=== PATIENT | female | born 1965 | race Native Hawaiian/Other Pacific Islander ===

== ENCOUNTER 2017-03-30 12:08 | Emergency (ER) | payer OTHER ==
[~2017-03-30] VITALS: Ht 157.5 cm; Wt 68.0 kg
[2017-03-31] MEDS ORDERED: FURO40TA93 PO (04:38)
[2017-03-31] MEDS ORDERED: KLOR-CON M2020 MEQ PO (04:39)
[2017-03-31] MEDS ORDERED: ALBU90AE13 INH (04:39)
== END 2017-03-30 12:37 | disposition home health service (06) ==
LOC: ED 12:08
DX: Z01.30 Encounter for examination of blood pressure without abnormal findings (principal)
CPT/HCPCS: 99281

== ENCOUNTER 2017-03-31 04:28 | Emergency (ER) | payer OTHER ==
[~2017-03-31] VITALS: Ht 170.2 cm; Wt 57.2 kg
[2017-03-31] MEDS ORDERED: FURO40TA93 PO (04:38)
[2017-03-31] MEDS ORDERED: ALBU90AE13 INH (04:39)
[2017-03-31] MEDS ORDERED: KLOR-CON M2020 MEQ PO (04:39)
== END 2017-03-31 05:10 | disposition home or self-care (01) ==
LOC: ED 04:28
DX: M79.605 Pain in left leg (principal)
CPT/HCPCS: 99281

== ENCOUNTER 2021-09-06 22:15 | Emergency (ER) | payer OTHER ==
[~2021-09-06] VITALS: Ht 162.6 cm; Wt 55.8 kg
[~2021-09-06 22:15] MED LIST: ALBU90AE13 INH; FURO40TA93 PO; KLOR-CON M2020 MEQ PO
[2021-09-06 22:58] LABS: PLATELET COUNT 148 K/uL (152-353)
[2021-09-06 23:02] LABS: POTASSIUM 3.5 mmol/L (3.6-5.2)
[2021-09-07 00:07] VITALS: BP 122/77; TEMP 97.6
[2021-09-07] MEDS ORDERED: KETO10TA34 PO (20:30)
[2021-09-07] MEDS ORDERED: K-TAB20 MEQ PO (20:30)
== END 2021-09-07 00:07 | disposition home or self-care (01) ==
LOC: ED 22:15
PROVIDERS: Emergency Medicine
DX: R07.89 Other chest pain (principal)
CPT/HCPCS: 36415; 80053; 80307; 81000; 84484; 85027; 85610; 93005; 99283

== ENCOUNTER 2021-09-07 19:48 | Emergency (ER) | payer OTHER ==
[~2021-09-07] VITALS: Ht 162.6 cm; Wt 55.8 kg
[2021-09-07] MEDS ORDERED: K-TAB20 MEQ PO (20:30)
[2021-09-07] MEDS ORDERED: KETO10TA34 PO (20:30)
[2021-09-07 20:58] VITALS: BP 102/60; TEMP 98.2
== END 2021-09-07 20:59 | disposition home or self-care (01) ==
LOC: ED 19:48
DX: R25.2 Cramp and spasm (principal); G89.29 Other chronic pain
CPT/HCPCS: 96372; 99282; J1885

== ENCOUNTER 2021-09-09 05:39 | Emergency (ER) | payer OTHER ==
[~2021-09-09 05:39] MED LIST changes: +K-TAB20 MEQ PO; +KETO10TA34 PO
== END 2021-09-09 05:50 | disposition home or self-care (01) ==
LOC: ED 05:39
DX: Z53.21 Procedure and treatment not carried out due to patient leaving prior to being seen by health care provider (principal)
CPT/HCPCS: 99281

== ENCOUNTER 2021-09-13 23:32 | Emergency (ER) | payer OTHER ==
[~2021-09-13] VITALS: Ht 162.6 cm; Wt 55.8 kg
[2021-09-14 00:27] LABS: POTASSIUM 3.5 mmol/L (3.6-5.2)
[2021-09-14 00:56] LABS: PLATELET COUNT 187 K/uL (152-353)
[2021-09-14 01:42] VITALS: BP 118/65; TEMP 97.8
== END 2021-09-14 01:42 | disposition home or self-care (01) ==
LOC: ED 23:32
PROVIDERS: Emergency Medicine
DX: R07.89 Other chest pain (principal)
CPT/HCPCS: 80053; 80320; 84484; 85027; 85379; 93005; 99283

== ENCOUNTER 2021-09-14 04:05 | Emergency (ER) | payer OTHER ==
[~2021-09-14] VITALS: Ht 162.6 cm; Wt 55.8 kg
[2021-09-14 04:50] VITALS: BP 110/61; TEMP 97.8
== END 2021-09-14 04:50 | disposition home or self-care (01) ==
LOC: ED 04:05
DX: R22.43 Localized swelling, mass and lump, lower limb, bilateral (principal)
CPT/HCPCS: 99281

== ENCOUNTER 2022-06-06 14:58 | Emergency (ER) | payer OTHER ==
[~2022-06-06] VITALS: Ht 162.6 cm; Wt 54.4 kg
[2022-06-06 15:02] VITALS: TEMP 97.6
[2022-06-06 15:31] LABS: PLATELET COUNT 191 K/uL (152-353)
[2022-06-06 15:47] LABS: POTASSIUM 4.1 mmol/L (3.6-5.2)
[2022-06-06 17:07] VITALS: BP 123/68
== END 2022-06-06 17:09 | disposition home or self-care (01) ==
LOC: ED 14:58
PROVIDERS: Emergency Medicine
DX: R10.84 Generalized abdominal pain (principal)
CPT/HCPCS: 80053; 81002; 83690; 85027; 96374; 96375; 99284; J1885; Q9963

== ENCOUNTER 2022-06-06 22:21 | Emergency (ER) | payer OTHER ==
[~2022-06-06] VITALS: Ht 162.6 cm; Wt 54.4 kg
[2022-06-06 22:30] VITALS: TEMP 98.5
[2022-06-06 23:14] VITALS: BP 114/73
== END 2022-06-06 23:15 | disposition home or self-care (01) ==
LOC: ED 22:21
DX: J44.1 Chronic obstructive pulmonary disease with (acute) exacerbation (principal); F17.210 Nicotine dependence, cigarettes, uncomplicated
CPT/HCPCS: 94664; 96372; 99282

== ENCOUNTER 2022-06-08 04:12 | Emergency (ER) | payer OTHER ==
[~2022-06-08] VITALS: Ht 162.6 cm; Wt 54.4 kg
[2022-06-08 04:26] VITALS: BP 125/80; TEMP 97.8
== END 2022-06-08 04:40 | disposition home or self-care (01) ==
LOC: ED 04:12
DX: Z53.21 Procedure and treatment not carried out due to patient leaving prior to being seen by health care provider (principal)
CPT/HCPCS: 99281

== ENCOUNTER 2022-06-08 07:20 | Emergency (ER) | payer OTHER ==
[~2022-06-08] VITALS: Ht 170.2 cm; Wt 56.4 kg
[2022-06-08 08:44] LABS: PLATELET COUNT 197 K/uL (152-353)
[2022-06-08 09:15] LABS: POTASSIUM 4.2 mmol/L (3.6-5.2)
[2022-06-08 09:30] VITALS: BP 121/68; TEMP 98
== END 2022-06-08 09:30 | disposition home or self-care (01) ==
LOC: ED 07:20
PROVIDERS: Emergency Medicine Emergency Medical Services
DX: J44.1 Chronic obstructive pulmonary disease with (acute) exacerbation (principal); K80.80 Other cholelithiasis without obstruction; F17.210 Nicotine dependence, cigarettes, uncomplicated
CPT/HCPCS: 80048; 84484; 85027; 93005; 94664; 96372; 99283; J1885

== ENCOUNTER 2022-06-09 21:34 | Emergency (ER) | payer OTHER ==
[~2022-06-09] VITALS: Ht 170.2 cm; Wt 56.2 kg
[2022-06-09 22:35] VITALS: BP 131/66; TEMP 97.4
== END 2022-06-10 10:59 | disposition home or self-care (01) ==
LOC: ED 21:34
DX: S39.012A Strain of muscle, fascia and tendon of lower back, initial encounter (principal); Z59.00 Homelessness unspecified; X58.XXXA Exposure to other specified factors, initial encounter; Y92.89 Other specified places as the place of occurrence of the external cause
CPT/HCPCS: 99281

== ENCOUNTER 2022-06-12 20:45 | Emergency (ER) | payer OTHER ==
[~2022-06-12] VITALS: Ht 170.2 cm; Wt 54.4 kg
[2022-06-12 23:06] LABS: PLATELET COUNT 227 K/uL (152-353)
[2022-06-12 23:24] LABS: POTASSIUM 3.9 mmol/L (3.6-5.2)
[2022-06-13 00:32] VITALS: BP 124/70; TEMP 97.9
== END 2022-06-13 00:32 | disposition home or self-care (01) ==
LOC: ED 20:45
PROVIDERS: Emergency Medicine Emergency Medical Services
DX: M54.59 Other low back pain (principal); G89.29 Other chronic pain
CPT/HCPCS: 36415; 80048; 80307; 81002; 85027; 93005; 96372; 99283; J1885

== ENCOUNTER 2022-06-17 00:56 | Emergency (ER) | payer OTHER ==
[~2022-06-17] VITALS: Ht 170.2 cm; Wt 54.4 kg
[2022-06-17 00:57] VITALS: BP 136/50; TEMP 209.8
== END 2022-06-17 01:00 | disposition left against medical advice (07) ==
LOC: ED 00:56
DX: Z53.21 Procedure and treatment not carried out due to patient leaving prior to being seen by health care provider (principal)

== ENCOUNTER 2022-06-18 15:09 | Emergency (ER) | payer OTHER ==
[~2022-06-18] VITALS: Ht 170.2 cm; Wt 56.2 kg
[2022-06-18 15:52] LABS: PLATELET COUNT 228 K/uL (152-353)
[2022-06-18 15:59] LABS: POTASSIUM 3.2 mmol/L (3.6-5.2)
[2022-06-19 14:51] VITALS: BP 132/81; TEMP 96.8
== END 2022-06-19 14:51 | disposition other institution (70) ==
LOC: ED 15:09
PROVIDERS: Internal Medicine
DX: F22 Delusional disorders (principal); Z11.52 Encounter for screening for COVID-19
CPT/HCPCS: 36415; 80053; 80143; 80179; 80307; 80320; 81002; 84132; 85027; 87635; 96372; 99283; 99285; J1200; J1630; J2060; U0003